=== PATIENT | male | born 1955 | race Caucasian/White ===

== ENCOUNTER → 2017-10-07 | Outpatient (CLI) | payer BC ==
--- NOTE | 2017-10-07 10:20 | Diagnostic Imaging Report ---
PROCEDURE: MR imaging cervical spine without contrast. TECHNIQUE: Multiplanar, multisequence MR imaging of the cervical spine was performed without contrast. INDICATION: Neck pain and right shoulder pain. COMPARISON: No comparison is available. FINDINGS: Alignment of the cervical spine is normal. The vertebral body heights appear well-maintained. There is no focal marrow signal abnormality to suggest an acute osseous injury or underlying osseous lesion. Cervical cord normal in caliber without evidence of cord signal abnormality. The visualized intracranial contents unremarkable. There is no abnormal epidural process. C2-C3 demonstrates a minimal spondylitic ridging but no significant stenosis. At C3-C4, there is endplate ridging and a small disc bulge and central disc protrusion. There is also uncovertebral spurring and facet arthropathy. There is mild narrowing of central canal but severe left and eodvdjzm-tj-xwdgxs right neuroforaminal stenosis. At C4-C5 disc osteophyte complex present eccentric to the right. There is severe right and yhrwqyzr-yr-ackyrc left neuroforaminal stenosis and moderate central canal stenosis. C5-C6 demonstrates endplate spurring and disc bulging with yrufbeja-fs-xvfgcl central canal stenosis. There is severe left and moderate right neuroforaminal stenosis. C6-C7 demonstrates disc bulge and endplate spurring with mild narrowing of the central canal and uppn-jo-lsagnhtk narrowing of both neural foramen. C7-T1 unremarkable. Soft tissues of the neck demonstrate no acute process. Vascular flow voids appear preserved. IMPRESSION: 1. Normal alignment of the cervical spine without evidence of an acute osseous abnormality. 2. No cord signal abnormality or abnormal epidural process. 3. Multiple levels of significant central canal and neuroforaminal stenosis. Each of these are described in detail above level by level. Dictated by: Dictated on workstation # [id number]
== END ==
LOC: RAD 09:16
PROVIDERS: ATTEND Nurse Practitioner Family
DX: M48.02 Spinal stenosis, cervical region (principal); M50.321 Other cervical disc degeneration at C4-C5 level; M46.82 Other specified inflammatory spondylopathies, cervical region; M50.21 Other cervical disc displacement, high cervical region
CPT/HCPCS: 72141

== ENCOUNTER → 2017-11-21 | Outpatient (CLI) | payer BC ==
--- NOTE | 2017-11-21 11:42 | Diagnostic Imaging Report ---
INDICATION: Back pain. TECHNIQUE: Multiplanar and multisequence acquisitions were acquired through the thoracic spine without the use of gadolinium. FINDINGS: The alignment of the thoracic spine is normal. Vertebral body heights are well maintained. No fracture or traumatic subluxation. The visualized portions of the spinal cord are normal signal intensity and morphology. There is no focal disc extrusion or high-grade spinal stenosis. Conus medullaris seen at L1 is normal in appearance. There are minimal degenerative changes. There are no other focal soft tissue abnormalities. IMPRESSION: Mild thoracic spondylosis otherwise unremarkable. Dictated by: Dictated on workstation # [id number]
== END ==
LOC: RAD 07:40
PROVIDERS: ATTEND Orthopaedic Surgery Orthopaedic Trauma
DX: M47.23 Other spondylosis with radiculopathy, cervicothoracic region (principal)
CPT/HCPCS: 72146

== ENCOUNTER 2017-12-14 12:30 | Outpatient (CLI) | payer BC ==
[~2017-12-14] VITALS: Ht 172.7 cm; Wt 83.9 kg
[2017-12-14] MEDS ORDERED: DEXAMETHASONE 10 MG/ML (DECADRON) 1 ML VIAL ONE (12:54)
[2017-12-14 13:00] VITALS: BP 121/78
[2017-12-14 13:22] VITALS: BP 135/92
--- NOTE | 2017-12-14 16:47 | OPERATIVE REPORT ---
DATE OF SERVICE: 12/14/2017 PREOPERATIVE AND POSTOPERATIVE DIAGNOSIS: Cervical radiculopathy. OPERATIVE PROCEDURE: Interlaminar epidural steroid injection. ANESTHESIA: Propofol. COMPLICATIONS: None CLINICAL SURGICAL COURSE: After being placed in the prone position upon a procedure table, we then administered Propofol for anesthesia. The area overlying the C7-T1 area was identified under fluoroscopy. The skin overlying the area was prepped with Betadine. The skin and the deep structures were anesthetized with approximately 5 mL of 1% Lidocaine. A 25 gauge spinal needle was then inserted and directed down to the lamina under direct fluoroscopy guidance. It was then worked into the ligamentum flavum. Using a loss of resistance syringe, we entered the epidural space. Approximately 1.0 mL of contrast dye was injected. Proximal and distal spread was noted. This indicated that we were in the epidural space. No vascular uptake was noted. Finally, 8.0 mg of Dexamethasone diluted in 3 mm of preservative free saline was injected and washed out the contrast under fluoroscopy. No blood, CSF or paresthesia was noted during the procedure. The patient will be released home without any complications. Job ID: [id number] DocumentID: [id number] Dictated Date: 12/14/2017 13:22:56 Electric Organ Assembler Date: 12/14/2017 16:46:01 Dictated By: ALEK LR DO
== END 2017-12-14 13:23 | disposition home or self-care (01) ==
LOC: CARD 12:30
PROVIDERS: ATTEND Pain Medicine Interventional Pain Medicine
DX: M47.812 Spondylosis without myelopathy or radiculopathy, cervical region (principal)
CPT/HCPCS: 62321

== ENCOUNTER 2018-01-11 15:08 | Outpatient (CLI) | payer BC ==
[~2018-01-11] VITALS: Ht 172.7 cm; Wt 88.5 kg
[2018-01-11] MEDS ORDERED: DEXAMETHASONE 10 MG/ML (DECADRON) 1 ML VIAL ONE (15:14)
[2018-01-11 15:28] VITALS: BP 121/82
[2018-01-11 15:58] VITALS: BP 124/76
--- NOTE | 2018-01-11 23:09 | OPERATIVE REPORT ---
DATE OF SERVICE: 01/11/2018 DIAGNOSIS: Cervical radiculopathy. OPERATIVE PROCEDURE: Interlaminar epidural steroid injection. ANESTHESIA: Propofol. COMPLICATIONS: None. CLINICAL SURGICAL COURSE: After being placed in the prone position upon a procedure table, we then administered Propofol for anesthesia. The area overlying the C7-T1 area was identified under fluoroscopy. The skin overlying the area was prepped with Betadine. The skin and the deep structures were anesthetized with approximately 5 mL of 1% Lidocaine. A 25 gauge spinal needle was then inserted and directed down to the lamina under direct fluoroscopy guidance. It was then worked into the ligamentum flavum. Using a loss of resistance syringe, we entered the epidural space. Approximately 1.0 mL of contrast dye was injected. Proximal and distal spread was noted. This indicated that we were in the epidural space. No vascular uptake was noted. Finally, 8.0 mg of Dexamethasone diluted in 3 mm of preservative free saline was injected and washed out the contrast under fluoroscopy. No blood, CSF or paresthesia was noted during the procedure. The patient will be released home without any complications. Job ID: [id number] DocumentID: [id number] Dictated Date: 01/11/2018 15:58:31 [employer] Date: 01/11/2018 22:42:40 Dictated By: ALEK LR DO
== END 2018-01-11 16:00 ==
LOC: CARD 15:08
PROVIDERS: ATTEND Pain Medicine Interventional Pain Medicine
DX: M54.12 Radiculopathy, cervical region (principal)
CPT/HCPCS: 62321

== ENCOUNTER → 2020-03-24 | Outpatient (CLI) | payer BC ==
[2020-03-24 13:02] LABS: ABSOLUTE RETIC # 106 10e9/uL (24-90); RETICULOCYTE % 2.09 % (0.50-2.40)
[2020-03-24 13:13] LABS: ANISOCYTOSIS SLIGHT; EOSINOPHILS % (MANUAL) 4 %; LYMPHOCYTES % (MANUAL) 16 %; MONOCYTES % (MANUAL) 7 %; NEUTROPHILS % (MANUAL) 73 %
== END ==
LOC: LABNPT 12:54
PROVIDERS: ATTEND Family Medicine
DX: Z01.89 Encounter for other specified special examinations (principal)
CPT/HCPCS: 85007; 85045

== ENCOUNTER → 2022-07-26 | Outpatient (CLI) | payer MEDICARE, OTHER ==
[~2022-07-26] MED LIST: CATHETER FLUSH 10 ML SYR IVP PRN; REGADENOSON 0.4 MG/5 ML SYR (LEXISCAN) IV ONE
[2022-07-26 12:53] VITALS: BP 120/51
--- NOTE | 2022-07-26 19:12 | STRESS TEST ---
DATE OF SERVICE: 07/26/2022 RESTING AND POST REGADENOSON TECHNETIUM-99M TETROFOSMIN SPECT CT IMAGING ORDERING PHYSICIAN: Dr. Reza. CLINICAL DIAGNOSIS: Abnormal electrocardiogram. Baseline images were carried out after injection of 10.38 mCi technetium-99m Tetrofosmin. This was followed by 0.4 mg of regadenoson, 32.6 mCi of technetium-99m tetrofosmin for stress imaging. The electrocardiogram showed sinus rhythm at baseline. There is left axis deviation. The electrocardiogram did not change significantly with regadenoson infusion. The patient noted some shortness of breath and warmth in the chest, which resolved in a few minutes. Review of images at rest and following stress did not indicate any distinct perfusion defects consistent with significant myocardial ischemia or infarction. Gated images show normal global left ventricular systolic function with normal regional wall motion. Left ventricular ejection fraction is calculated to be 62%. CONCLUSIONS: 1. No evidence of any significant myocardial ischemia or infarction in this study. 2. Normal regional wall motion. 3. Normal global left ventricular systolic function with a calculated ejection fraction of 62%. Job ID: [id number] DocumentID: [id number] Dictated Date: 07/26/2022 16:16:27 Faith Doctor Date: 07/26/2022 19:11:00 Dictated By: PARVEEN REZA MD; PEDRO; FACP; FACC; SHAMEKA
== END ==
LOC: CARD 12:15
PROVIDERS: ATTEND Internal Medicine Cardiovascular Disease
DX: R94.31 Abnormal electrocardiogram [ECG] [EKG] (principal)
CPT/HCPCS: 78452; 93017; A9502

== ENCOUNTER → 2022-07-27 | Outpatient (CLI) | payer MEDICARE, OTHER | LOC: CARD 09:15 | PROVIDERS: ATTEND Internal Medicine Cardiovascular Disease | DX: R94.31 Abnormal electrocardiogram [ECG] [EKG] (principal) | CPT/HCPCS: 93306 ==